=== PATIENT | female | born 1985 | race Asian ===

== ENCOUNTER 2017-02-23 10:18 | Emergency (ER) | payer BC ==
--- NOTE | 2017-02-23 11:55 | UC ---
Abilio Hahn Angela, scribed for Makayla Viveros MD on 02/23/17 at 1108 . Headache HPI - HPI Summary HPI Summary: This pt is a 31 y/o female, 18 weeks today, presenting to [facility] c/ o a itchy throat x5 days. Pt endorses constipation, mild cough, and a headache yesterday. She denies fever, chills, rhinorrhea. Pt notes that she arrived from [place] about 1 week ago on February 15. Pt states she saw her [employer] 2 weeks ago before moving to the [place] She has an upcoming appointment in March at [place]. - History Of Current Complaint Chief Complaint: UCHeadache Stated Complaint: THROAT PAIN Time Seen by Provider: 02/23/17 10:41 Hx Obtained From: Patient Hx Last Menstrual Period: 10/20/16 ?: Yes Onset/Duration: Lasting Days Associated Signs And Symptoms: Negative: Fever - Allergies/Home Medications Allergies/Adverse Reactions: Allergies Allergy/AdvReac Type Severity Reaction Status Date / Time No Known Allergies Allergy Verified 02/23/17 10:23 Home Medications: Home Medications NK [No Home Medications Reported] 02/23/17 [History Confirmed 02/23/17] PMH/Surg Hx/FS Hx/Imm Hx Previously Healthy: Yes - see hpi Other Endocrine History: DENIES: Diabetes Other Cardiovascular History: DENIES: cardiac disease - Surgical History Surgical History: None - Family History Known Family History: Negative: Cardiac Disease, Hypertension, Diabetes - Social History Alcohol Use: None Substance Use Type: None Smoking Status (MU): Never Smoked Tobacco Review of Systems Constitutional: Negative Skin: Negative - mild ENT: Sore Throat Respiratory: Cough Cardiovascular: Negative Gastrointestinal: Negative, Other - Constipation Genitourinary: Negative Motor: Negative Neurovascular: Negative Musculoskeletal: Negative Neurological: Headache All Other Systems Reviewed And Are Negative: Yes Physical Exam Triage Information Reviewed: Yes Appearance: Well-Nourished Vital Signs: Initial Vital Signs Temp 97.2 F 02/23/17 10:24 Pulse 65 02/23/17 10:24 Resp 16 02/23/17 10:24 Pulse Ox 99 02/23/17 10:24 Vital Signs Reviewed: Yes Eye Exam: Normal Eyes: Positive: Other: - eyes watery ENT: Positive: Pharyngeal erythema - uvula is a little swollen, Nasal congestion , TM dull - bilaterally. TMs are nicole bilaterally. TMs are a little retracted bilaterally., Other: - No airway obstruction. TMs are Neck exam: Normal Neck: Positive: Supple, Nontender, No Lymphadenopathy Respiratory Exam: Normal, Other - no dyspnea, no tachypnea, normal respiratory rate. Respiratory: Positive: Chest non-tender, Lungs clear, Normal breath sounds, No respiratory distress, No accessory muscle use Cardiovascular Exam: Normal Cardiovascular: Positive: RRR, No Murmur, Pulses Normal, Brisk Capillary Refill , Other: - Heart rate regular, good general skin color, good capillary refill Abdominal Exam: Normal Abdomen Description: Positive: Nontender, No Organomegaly, Soft Bowel Sounds: Positive: Present Musculoskeletal Exam: Normal Musculoskeletal: Positive: Strength Intact Neurological Exam: Normal - nonfocal, grossly intact Psychological Exam: Normal - conversing easily and appropriately Skin Exam: Normal - no visible or reported rash Headache Course/Dx - Course Course Of Treatment: No new problems in CCC. Influenza / strep both negative. [facility]. Consider multiple diff dx; however, suspect viral sydrome exacerbated by histamine response. Recent travel from [place]. [place] antihistamines (bring with her to [facility] appt). Start PNVitamin daily. Pt and were given the opportunity to ask several questions, to which I answered to the best of my ability. - Differential Dx/Diagnosis Provider Diagnoses: Viral Syndrome Discharge - Discharge Plan Condition: Stable Disposition: HOME Patient Education Materials: Antihistamine (By mouth), Viral Syndrome (ED) Referrals: No Primary Care Phys,NOPCP [Primary Care Provider] - Additional Instructions: Please follow up with [facility] [place] [facility] doctor in March as scheduled. Please seek medical attention for worse or new problems in the meantime. vitamin once daily. Antihistamine (NOT DECONGESTANT) over the counter, as needed for scratchy throat , runny nose. Consider check with your pharmacist. The documentation as recorded by the Abilio valenzuela Angela accurately reflects the service I personally performed and the decisions made by me, Makayla Viveros MD.
== END 2017-02-23 11:50 | disposition home or self-care (01) ==
LOC: UCEAST 10:18
DX: B34.9 Viral infection, unspecified (principal)
CPT/HCPCS: 87502; 87651; 99201; G0463

== ENCOUNTER 2017-07-01 15:08 | Emergency (ER) | payer BC ==
[2017-07-01 15:28] VITALS: BP 122/66
--- NOTE | 2017-07-01 15:48 | UC ---
Lower Extremity/Ankle HPI - HPI Summary HPI Summary: Pt presents with for sinus congestion and a dry cough for the last 4 days. She is currently 37 weeks . Today she says she is feeling better. Has not taken anything OTC. Denies fever, chills, SOB, chest pain, abdominal pain, N/V/D/C, or vaginal bleeding. - History of Current Complaint Chief Complaint: UCRespiratory Stated Complaint: sinus congestion Time Seen by Provider: 07/01/17 15:36 Hx Obtained From: Patient Hx Last Menstrual Period: 10/20/16 Onset/Duration: Gradual Onset Severity Initially: Mild Severity Currently: Mild Pain Intensity: 2 Pain Scale Used: 0-10 Numeric - Allergies/Home Medications Allergies/Adverse Reactions: Allergies Allergy/AdvReac Type Severity Reaction Status Date / Time No Known Allergies Allergy Verified 07/01/17 15:28 Home Medications: Home Medications Cholecalciferol [Vitamin D] 1,000 unit PO DAILY 07/01/17 [History Confirmed ] Multiple Vitamin [Multivitamins] 1 cap PO DAILY 07/01/17 [History Confirmed ] PMH/Surg Hx/FS Hx/Imm Hx Previously Healthy: Yes - Surgical History Surgical History: None - Family History Known Family History: Negative: Cardiac Disease, Hypertension, Diabetes - Social History Lives: With Family Alcohol Use: None Substance Use Type: None Smoking Status (MU): Never Smoked Tobacco - Immunization History Most Recent Influenza Vaccination: fall 2016 Review of Systems Constitutional: Negative Skin: Negative Eyes: Negative ENT: Nasal Discharge, Sinus Congestion, Sinus Pain/Tenderness Respiratory: Cough Cardiovascular: Negative Gastrointestinal: Negative All Other Systems Reviewed And Are Negative: Yes Physical Exam Triage Information Reviewed: Yes Appearance: Well-Appearing, No Pain Distress, Other: - Vital Signs: Initial Vital Signs Temp 98.3 F 07/01/17 15:24 Pulse 80 07/01/17 15:24 Resp 16 07/01/17 15:24 BP 122/66 07/01/17 15:24 Pulse Ox 97 07/01/17 15:24 Vital Signs Reviewed: Yes Eyes: Positive: Conjunctiva Clear. Negative: Conjunctiva Inflamed, Discharge ENT: Positive: Hearing grossly normal, Pharynx normal, Nasal congestion, Nasal drainage, TMs normal, Uvula midline. Negative: Pharyngeal erythema, TM bulging , TM dull, TM red, Tonsillar swelling, Tonsillar exudate, Hoarse voice, Sinus tenderness Neck: Positive: Supple, Nontender, No Lymphadenopathy Respiratory: Positive: Chest non-tender, Lungs clear, Normal breath sounds, No respiratory distress, No accessory muscle use Cardiovascular: Positive: RRR, No Murmur, Pulses Normal Neurological: Positive: Alert Psychological: Positive: Age Appropriate Behavior Skin: Negative: rashes Lower Extremity Course/Dx - Course Course Of Treatment: Suspect viral URI. Pt is reporting that she feels improved today, but was worried because she is . I reassured her and advised rest and to take tylenol for any discomfort. If she develops fever, chills, new or worsening symptoms - to call her PCP or go to ED. - Differential Dx/Diagnosis Provider Diagnoses: Viral URI Discharge - Discharge Plan Condition: Stable Disposition: HOME Patient Education Materials: Sinusitis (ED) Referrals: No Primary Care Phys,NOPCP [Primary Care Provider] - Additional Instructions: If you develop a fever, shortness of breath, chest pain, new or worsening symptoms - please call your PCP or go to the ED. 1) Rest and drink plenty of water!
== END 2017-07-01 16:04 | disposition home or self-care (01) ==
LOC: UCEAST 15:08
DX: O99.89 Other specified diseases and conditions complicating pregnancy, childbirth and the puerperium (principal); J06.9 Acute upper respiratory infection, unspecified; Z3A.37 37 weeks gestation of pregnancy
CPT/HCPCS: 99211; G0463

== ENCOUNTER 2017-07-21 10:25 | Inpatient (IN) | payer BC ==
[2017-07-21 13:33] LABS: ABS Basophils 0 10^3/ul (0-0.2); ABS Eosinophils 0 10^3/ul (0-0.6); ABS Lymphocytes 1.9 10^3/ul (1.0-4.8); ABS Monocytes 0.5 10^3/ul (0-0.8); ABS Neutrophils 6.5 10^3/ul (1.5-7.7); ABS Nucleated RBC 0 10^3/ul; Eosinophil % 0.2 % (0-6); Hematocrit 37 % (35-47); Hemoglobin 12.4 g/dl (12.0-16.0); Lymphocyte % 20.8 % (25-47); Mean Corpuscular HGB Conc 34 g/dl (31-36); Mean Corpuscular Hemoglobin 31 pg (27-31); Mean Corpuscular Volume 90 fL (80-97); Mean Platelet Volume 10 um3 (7.4-10.4); Nucleated Red Blood Cells % 0; Platelet Count 129 10^3/ul (150-450); Red Blood Count 4.05 10^6/ul (4.0-5.4); Red Cell Distribution Width 14 % (10.5-15)
[2017-07-21] MEDS ORDERED: OBEPIDURAL* 250 ML EPIDURAL ONE (16:01)
[2017-07-21] MEDS ORDERED: Phenylephrine IV* 40 MCG/ML 10 ML SYRINGE IV PUSH PRN ×2 (16:36)
[2017-07-21] MEDS ORDERED: Sodium Citrate/Citric Acid* 15 ML UDC PO PRN (16:36)
[2017-07-21] MEDS ORDERED: Famotidine TAB* 20 MG PO PRN (16:36)
[2017-07-21] MEDS ORDERED: OBEPIDURAL* 250 ML EPIDURAL SCH (17:00)
[2017-07-21] MEDS ORDERED: Oxytocin in LR* 20 UNITS/1,000 ML BAG IVPB ONE (20:43)
[2017-07-21] MEDS ORDERED: Witch Hazel PAD* JAR TOPICAL PRN (21:06)
[2017-07-21] MEDS ORDERED: Glycerin ADULT SUPP PR PRN (21:06)
[2017-07-21] MEDS ORDERED: Ibuprofen TAB* 600 MG PO PRN (21:06)
[2017-07-21] MEDS ORDERED: Dibucaine 1% 28.35 GM TUBE PR PRN (21:06)
[2017-07-21] MEDS ORDERED: Acetaminophen TAB* 325 MG PO PRN (21:06)
[2017-07-21] MEDS ORDERED: Oxytocin in LR* 20 UNITS/1,000 ML BAG IVPB SCH (22:00)
[2017-07-22 07:57] LABS: ABS Basophils 0.1 10^3/ul (0-0.2); ABS Eosinophils 0 10^3/ul (0-0.6); ABS Lymphocytes 2.6 10^3/ul (1.0-4.8); ABS Monocytes 0.9 10^3/ul (0-0.8); ABS Neutrophils 11.8 10^3/ul (1.5-7.7); ABS Nucleated RBC 0 10^3/ul; Eosinophil % 0.2 % (0-6); Hematocrit 26 % (35-47); Lymphocyte % 16.6 % (25-47); Mean Corpuscular HGB Conc 34 g/dl (31-36); Mean Corpuscular Hemoglobin 31 pg (27-31); Mean Corpuscular Volume 90 fL (80-97); Mean Platelet Volume 10 um3 (7.4-10.4); Nucleated Red Blood Cells % 0; Platelet Count 110 10^3/ul (150-450); Red Blood Count 2.91 10^6/ul (4.0-5.4); Red Cell Distribution Width 14 % (10.5-15); White Blood Count 15.4 10^3/ul (3.5-10.8)
[2017-07-22] MEDS ORDERED: Simethicone TAB* 80 MG TAB.CHEW PO SCH (08:30)
[2017-07-22] MEDS: Ferrous Gluconate TAB* 324 MG TAB PO SCH ×2 (09:43→21:03)
[2017-07-22] MEDS: Docusate CAP* 100 MG PO SCH ×3 (09:43→21:03)
[2017-07-22] MEDS ORDERED: Oseltamivir CAP* 75 MG PO SCH (21:00)
[2017-07-23 07:49] VITALS: BP 108/63
[2017-07-23] MEDS: Ferrous Gluconate TAB* 324 MG TAB PO SCH (08:20)
[2017-07-23] MEDS: Docusate CAP* 100 MG PO SCH (08:20)
== END 2017-07-23 14:30 | disposition home or self-care (01) | DRG 560 ==
LOC: MCHOBOUT 10:25 → MCHOB 11:54
PROVIDERS: ADMIT Obstetrics & Gynecology; ATTEND Obstetrics & Gynecology
PROC: 10E0XZZ Delivery of Products of Conception, External Approach (ICD-10-PCS; principal; 2017-07-21)
PROC: 10907ZC Drainage of Amniotic Fluid, Therapeutic from Products of Conception, Via Natural or Artificial Opening (ICD-10-PCS; 2017-07-21)
PROC: 0KQM0ZZ Repair Perineum Muscle, Open Approach (ICD-10-PCS; 2017-07-21)
DX: O60.23X1 Term delivery with preterm labor, third trimester, fetus 1 (principal); D64.9 Anemia, unspecified; O69.81X0 Labor and delivery complicated by cord around neck, without compression, not applicable or unspecified; O70.1 Second degree perineal laceration during delivery; O90.81 Anemia of the puerperium; Z3A.38 38 weeks gestation of pregnancy; Z37.0 Single live birth
CPT/HCPCS: 36415; 85025; 86850; 86900; 86901; 87502; A9270-GY

== ENCOUNTER 2017-11-05 13:32 | Emergency (ER) | payer OTHER, BC ==
[2017-11-05 13:42] VITALS: BP 97/55
--- NOTE | 2017-11-05 14:21 | ED ---
Skin Complaint - HPI Summary HPI Summary: 32 yo AF c/o cold sore in right lower lips x 2 days, breast feeds and is concerned about being contagious, denies any other complaints - History of Current Complaint Chief Complaint: UCSkin Time Seen by Provider: 11/05/17 13:34 Stated Complaint: SOFT TISSUE Hx Obtained From: Patient Hx Last Menstrual Period: No menes since giving on 07/21/17 Onset/Duration: Started Days Ago Skin Exposure Onset/Duration: Days Ago Onset Severity: Moderate Current Severity: Moderate Pain Intensity: 0 Skin Location: Ear Character: Raised Aggravating Symptom(s): Nothing Alleviating Symptom(s): Nothing Associated Signs & Symptoms: Negative - Allergy/Home Medications Allergies/Adverse Reactions: Allergies Allergy/AdvReac Type Severity Reaction Status Date / Time No Known Allergies Allergy Verified 11/05/17 13:37 Home Medications: Home Medications Ferrous Gluconate TAB* [Fergon TAB*] 324 mg PO DAILY 11/05/17 [History Confirmed 11/05/17] Post Vitamin 1 tab PO DAILY 11/05/17 [History Confirmed 11/05/17] PMH/Surg Hx/FS Hx/Imm Hx Previously Healthy: Yes Infectious Disease History: No Infectious Disease History: Denies: Hx Clostridium Difficile, Hx Hepatitis, Hx Human Immunodeficiency Virus (HIV), Hx of Known/Suspected MRSA, Hx Shingles, Hx Tuberculosis, Hx Known/ Suspected VRE, Hx Known/Suspected VRSA, History Other Infectious Disease, Traveled Outside the [place] in Last 30 Days - Family History Known Family History: Negative: Cardiac Disease, Hypertension, Diabetes - Social History Alcohol Use: Occasionally Substance Use Type: Reports: None Smoking Status (MU): Never Smoked Tobacco Have You Smoked in the Last Year: No Review of Systems Constitutional: Negative Eyes: Negative ENT: Negative Cardiovascular: Negative Respiratory: Negative Gastrointestinal: Negative Genitourinary: Negative Musculoskeletal: Negative Positive: Other - lip sore on right lower lip Positive: Headache All Other Systems Reviewed And Are Negative: Yes Physical Exam Triage Information Reviewed: Yes Vital Signs On Initial Exam: Initial Vitals Temp Pulse Resp BP Pulse Ox 36.6 C 59 16 97/55 99 11/05/17 13:38 11/05/17 13:38 11/05/17 13:38 11/05/17 13:38 11/05/17 13:38 Vital Signs Reviewed: Yes Appearance: Positive: No Pain Distress Skin: Positive: Warm Eyes: Positive: Normal ENT: Positive: Normal ENT inspection Neck: Positive: Supple Respiratory/Lung Sounds: Positive: Clear to Auscultation Cardiovascular: Positive: Normal Abdomen Description: Positive: Nontender Bowel Sounds: Positive: Present Musculoskeletal: Positive: Normal Neurological: Positive: Normal Psychiatric: Positive: Normal AVPU Assessment: Alert Diagnostics - Vital Signs Vital Signs Temp Pulse Resp BP Pulse Ox 11/05/17 13:38 36.6 C 59 16 97/55 99 - Laboratory Lab Statement: Any lab studies that have been ordered have been reviewed, and results considered in the medical decision making process. 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
== END 2017-11-05 14:06 | disposition home or self-care (01) ==
LOC: UCEAST 13:32
DX: B00.1 Herpesviral vesicular dermatitis (principal)
CPT/HCPCS: 99212; G0463

== ENCOUNTER 2018-02-05 08:57 | Emergency (ER) | payer BC, OTHER ==
[2018-02-05 09:05] VITALS: BP 102/70
--- NOTE | 2018-02-05 10:00 | UC ---
Ear Complaint HPI - HPI Summary HPI Summary: ear pain for 5 days after water went to her ear. Denies cold like symptoms, cough, nasal or sinus pressure or discharge or fever. - History of Current Complaint Chief Complaint: UCEar Stated Complaint: L EAR COMPLAINT Time Seen by Provider: 02/05/18 09:50 Hx Obtained From: Patient Hx Last Menstrual Period: post 07/21/17 ?: No Onset/Duration: Sudden Onset, Lasting Days Severity Initially: Mild Severity Currently: Moderate Pain Intensity: 7 Aggravating Factors: Nothing Alleviating Factors: Nothing - Allergies/Home Medications Allergies/Adverse Reactions: Allergies Allergy/AdvReac Type Severity Reaction Status Date / Time No Known Allergies Allergy Verified 02/05/18 09:05 PMH/Surg Hx/FS Hx/Imm Hx Previously Healthy: Yes - Surgical History Surgical History: None - Family History Known Family History: Positive: None Negative: Cardiac Disease, Hypertension, Diabetes - Social History Alcohol Use: Occasionally Substance Use Type: None Smoking Status (MU): Never Smoked Tobacco Have You Smoked in the Last Year: No - Immunization History Most Recent Influenza Vaccination: fall 2016 Most Recent Pneumonia Vaccination: none Review of Systems Constitutional: Negative ENT: Ear Ache All Other Systems Reviewed And Are Negative: Yes Physical Exam Triage Information Reviewed: Yes Appearance: Well-Appearing, No Pain Distress, Well-Nourished Vital Signs: Initial Vital Signs Temp 98 F 02/05/18 09:02 Pulse 71 02/05/18 09:02 Resp 16 02/05/18 09:02 BP 102/70 02/05/18 09:02 Pulse Ox 100 02/05/18 09:02 Vital Signs Reviewed: Yes Eyes: Positive: Conjunctiva Clear ENT: Positive: Hearing grossly normal, Pharynx normal, Other - cerumen b/l Neck: Positive: Supple, Nontender, No Lymphadenopathy Respiratory: Positive: Chest non-tender, Lungs clear, Normal breath sounds, No respiratory distress Cardiovascular: Positive: RRR, No Murmur, Pulses Normal, Brisk Capillary Refill Ear Complaint Course/Dx - Course Course Of Treatment: b/l cerumen impaction, debrox prescribed, RTC if discomfort persists. - Differential Dx/Diagnosis Provider Diagnoses: cerumen impaction Discharge - Sign-Out/Discharge Documenting (check all that apply): Patient Departure - Discharge Plan Condition: Good Disposition: HOME Prescriptions: Carbamide Peroxide 6.5% OTIC* [DEBROX 6.5% Otic*] 5 drop BOTH EARS BID 5 Days # 1 bottle Patient Education Materials: Carbamide Peroxide (Into the ear), Cerumen Impaction (ED) Referrals: [facility] [Outside] No Primary Care Phys,NOPCP [Primary Care Provider] - - Billing Disposition and Condition Condition: GOOD Disposition: Home
== END 2018-02-05 10:02 | disposition home or self-care (01) ==
LOC: UCEAST 08:57
DX: H61.23 Impacted cerumen, bilateral (principal)
CPT/HCPCS: 99212; G0463